=== PATIENT | female | born 1985 | race Caucasian/White ===

== ENCOUNTER 2016-08-27 16:28 | Emergency (ER) | payer MEDICAID ==
--- NOTE | 2016-08-27 17:05 | ER Document Report ---
ED Medical Screen (RME) - General Chief Complaint: Vaginal Pain Stated Complaint: VAGINAL PAIN Notes: Patient says that she started having what seemed to be cysts in the pubic region started last Saturday. She was started on Bactrim twice a day on , but the area has just gotten much bigger and more painful. She's not had any drainage. No fevers. LMP 08/17. BTL. No other medical conditions. TRAVEL OUTSIDE OF THE [place] IN LAST 30 DAYS: No - Related Data Allergies/Adverse Reactions: cefadroxil hydrate [From [facility] [place]] Allergy (Severe, Verified 08/27/16 16:58) bees Allergy (Uncoded 08/27/16 16:58) Past Medical History Renal/ Medical History: Denies: Hx Peritoneal Dialysis - Immunizations Hx Diphtheria, Pertussis, Tetanus Vaccination: Yes Physical Exam - Vital signs Vitals: Temp Pulse Resp BP Pulse Ox 98.1 F 86 16 144/77 H 99 08/27/16 16:51 08/27/16 16:51 08/27/16 16:51 08/27/16 16:51 08/27/16 16:51 Course - Vital Signs Vital signs: Temp Pulse Resp BP Pulse Ox 98.1 F 86 16 144/77 H 99 08/27/16 16:51 08/27/16 16:51 08/27/16 16:51 08/27/16 16:51 08/27/16 16:51
[2016-08-27] MEDS ORDERED: LIDOCAINE 1% INJ-PF (10 MG/ML) 30 ML SDV INJ ONE (17:14)
[2016-08-27] MEDS ORDERED: ACETAMINOPHEN 325 MG TABLET PO ONE (17:14)
[2016-08-27] MEDS ORDERED: CLINDAMYCIN HCL 150 MG CAPSULE PO ONE (18:15)
--- NOTE | 2016-08-27 18:16 | ER Document Report ---
HPI - HPI Patient complains to provider of: cyst Pain Level: 4 Context: He shouldn't is a 30-year-old female presents emergency Department complaining of suprapubic cellulitis for the past 5 days. 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 Patient feels that it has gotten worse and she's been on the Bactrim and was referred over here today for incision and drainage. Denies any fever, chills, drainage from the area. Denies any history of MRSA. States she is allergic to cefadroxil otherwise denies any other past medical history - CARDIOVASCULAR Cardiovascular: DENIES: Chest pain - REPRODUCTIVE Reproductive: DENIES: : - DERM Skin Color: Normal, [place] Past Medical History - Social History Smoking Status: Never Smoker Chew tobacco use (# tins/day): No Frequency of alcohol use: None Drug Abuse: None Family History: Reviewed & Not Pertinent Patient has suicidal ideation: No Renal/ Medical History: Denies: Hx Peritoneal Dialysis Surgical Hx: Negative - Immunizations Hx Diphtheria, Pertussis, Tetanus Vaccination: Yes Vertical Provider Document - CONSTITUTIONAL Agree With Documented VS: Yes Exam Limitations: No Limitations General Appearance: WD/WN, No Apparent Distress Notes: PHYSICAL EXAM GENERAL: Alert, interacts well. LUNGS: Clear to auscultation bilaterally, no wheezes, rales, or rhonchi. No respiratory distress. HEART: Regular rate and rhythm. No murmurs, gallops, or rubs. ABDOMEN: Soft, nondistended, nontender. No guarding, rebound, or rigidity.. Bowel sounds present in all 4 quadrants. EXTREMITIES: Moves all 4 extremities spontaneously. No edema, radial and dorsalis pedis pulses 2/4 bilaterally. No cyanosis. NEUROLOGICAL: Alert and oriented x4. Normal speech. PSYCH: Normal affect, normal mood. SKIN: Warm, dry, normal turgor. No rashes or lesions noted. Area 5 cm x 7 cm of cellulitis and suprapubic area with induration and fluctuance. - INFECTION CONTROL TRAVEL OUTSIDE OF THE [place] IN LAST 30 DAYS: No - RESPIRATORY O2 Sat by Pulse Oximetry: 99 Course - Re-evaluation Re-evalutation: 08/27/16 21:05 Incision and drainage performed for about 2 mL (fluid and pocket explored for any loculations. Irrigated with saline and dry sterile dressing applied. Discussed with patient adding another antibiotic and telling her to follow up with primary care in 3 days - Vital Signs Vital signs: Temp Pulse Resp BP Pulse Ox 98.1 F 86 16 144/77 H 99 08/27/16 16:51 08/27/16 16:51 08/27/16 16:51 08/27/16 16:51 08/27/16 16:51 Procedures - Incision and Drainage Abdomen Type: Simple Anesthetic type: 1% Lidocaine mL's of anesthetic: 5 Blade size: 11 I&D procedure: Betadine prep applied, Sterile dressing applied Incision Method: Incision made by scalpel Amount/type of drainage: 2 Adult Front & Back picture: 1 - Cellulitis Discharge - Discharge Clinical Impression: Cellulitis Condition: Good Disposition: HOME, SELF-CARE Instructions: Cellulitis ([facility]) Additional Instructions: Follow-up with your primary care provider on for wound evaluation Prescriptions: Clindamycin HCl 300 mg PO Q6H 7 Days
[2016-08-27 18:54] VITALS: BP 142/74
== END 2016-08-27 18:31 | disposition home or self-care (01) ==
LOC: ER 16:28
PROC: 0H97XZZ Drainage of Abdomen Skin, External Approach (ICD-10-PCS; principal; 2016-08-27)
DX: L03.311 Cellulitis of abdominal wall (principal)
CPT/HCPCS: 99283

== ENCOUNTER → 2019-04-27 | Outpatient (CLI) | payer BC ==
--- NOTE | 2019-04-27 15:36 | RADIOLOGY REPORT (SQ) ---
EXAM DESCRIPTION: CT ABD/PELVIS NO ORAL OR IV COMPLETED DATE/TIME: 04/27/2019 3:17 pm REASON FOR STUDY: (R10.9)UNSPECIFIED ABDOMINAL PAIN R10.9 UNSPECIFIED ABDOMINAL PAIN COMPARISON: None. TECHNIQUE: CT scan of the abdomen and pelvis performed without intravenous or oral contrast. Images reviewed with lung, soft tissue, and bone windows. Reconstructed coronal and sagittal MPR images revi ewed. All images stored on PACS. All CT scanners at this facility use dose modulation, iterative reconstruction, and/or weight based d osing when appropriate to reduce radiation dose to as low as reasonably achievable (ALARA). [facility]: Dose Right [facility]: CareDose [facility]: Dose Right [facility]: Teradose 4D [facility]: Smart Technologies RADIATION DOSE: CT Rad equipment meets quality standard of care and radiation dose reduction techniq ues were employed. CTDIvol: 11.5 mGy. DLP: 629 mGy-cm.mGy. LIMITATIONS: None. FINDINGS: LOWER CHEST: No significant findings. No nodules or infiltrates. NON-CONTRASTED LIVER, SPLEEN, ADRENALS: Evaluation limited by lack of IV contrast. No identified sign ificant masses. PANCREAS: No masses. No peripancreatic inflammatory changes. GALLBLADDER: No identified stones by CT criteria. No inflammatory changes to suggest cholecystitis. RIGHT KIDNEY AND URETER: No suspicious masses. Assessment limited by lack of IV contrast. No signif icant calcifications. No hydronephrosis or hydroureter. LEFT KIDNEY AND URETER: No suspicious masses. Assessment limited by lack of IV contrast. 10 mm ston e left UPJ measuring 1,300 HU. 2 smaller stones in the kidney. Mild hydronephrosis. AORTA AND RETROPERITONEUM: No aneurysm. No retroperitoneal masses or adenopathy. BOWEL AND PERITONEAL CAVITY: No obvious masses or inflammatory changes. No free fluid. APPENDIX: Normal. PELVIS, BLADDER, AND ABDOMINAL WALL:No abnormal masses. No free fluid. Bladder normal. BONES: No significant findings. OTHER: No other significant finding. IMPRESSION: 10 mm stone left UPJ. Mild hydronephrosis. COMMENT: Quality ID # [id number]: Final reports with documentation of one or more dose reduction techniques (e.g., Automated exposure control, adjustment of the mA and/or kV according to patient size, use of iterative reconstruction technique) TECHNICAL DOCUMENTATION: JOB ID: [id number]- All Rights Reserved Reading location - IP/workstation name: [email or web address]
== END ==
LOC: RAD 14:51
PROVIDERS: ATTEND Nurse Practitioner Family
DX: N13.2 Hydronephrosis with renal and ureteral calculous obstruction (principal); R10.9 Unspecified abdominal pain
CPT/HCPCS: 74176

== ENCOUNTER 2019-04-28 15:36 | Emergency (ER) | payer BC ==
[2019-04-28] MEDS ORDERED: NORMAL SALINE 1000 ML 1,000 ML IV ONE ×2 (16:08→17:52)
[2019-04-28] MEDS ORDERED: ONDANSETRON HCL INJ/PF 4 MG/2 ML SDV IV ONE (16:08)
[2019-04-28] MEDS ORDERED: MORPHINE SULFATE 10 MG/ML INJ IV ONE (16:09)
--- NOTE | 2019-04-28 16:12 | ER Document Report ---
ED Medical Screen (RME) - General Chief Complaint: Possible Kidney Stone Stated Complaint: NAUSEA,VOMITING,LEFT FLANK PAIN Time Seen by Provider: 04/28/19 16:07 Primary Care Provider: JOSESITO SHETH FNP-C [Primary Care Provider] - Follow up as needed Mode of Arrival: Ambulatory Information source: Patient Notes: 33-year-old female presented to ED for left flank pain. She did have a CAT scan outpatient does show a 10 mm stone at the left UPJ. She states her primary care did give her Toradol and Flomax yesterday. She has been taking it. She did take Toradol this morning. I have ordered her IV fluids blood and urine and some morphine for her pain. I have also ordered her some Zofran. She has been informed she needs to find a ride if she is going home before she leaves as she will be getting narcotics. Patient is alert oriented respirations regular and unlabored at this time. I have greeted and performed a rapid initial assessment of this patient. A comprehensive ED assessment and evaluation of the patient, analysis of test results and completion of medical decision making process will be conducted by an additional ED providers. TRAVEL OUTSIDE OF THE [place] IN LAST 30 DAYS: No - Related Data Allergies/Adverse Reactions: cefadroxil hydrate [From [facility]] Allergy (Severe, Verified 08/27/16 16:58) bees Allergy (Uncoded 08/27/16 16:58) Past Medical History Renal/ Medical History: Denies: Hx Peritoneal Dialysis - Immunizations Hx Diphtheria, Pertussis, Tetanus Vaccination: Yes Physical Exam - Vital signs Vitals: Temp Pulse Resp BP Pulse Ox 97.8 F 106 H 16 135/78 H 98 04/28/19 15:59 04/28/19 15:59 04/28/19 15:59 04/28/19 15:59 04/28/19 15:59 Course - Vital Signs Vital signs: Temp Pulse Resp BP Pulse Ox 97.8 F 106 H 16 135/78 H 98 04/28/19 15:59 04/28/19 15:59 04/28/19 15:59 04/28/19 15:59 04/28/19 15:59 Doctor's Discharge - Discharge Referrals: JOSESITO SHETH FNP-C [Primary Care Provider] - Follow up as needed
--- NOTE | 2019-04-28 16:25 | ER Document Report ---
ED General - General Chief Complaint: Flank Pain Stated Complaint: NAUSEA,VOMITING,LEFT FLANK PAIN Time Seen by Provider: 04/28/19 16:07 Primary Care Provider: JOSESITO SHETH FNP-C [Primary Care Provider] - Follow up in 3-5 days Mode of Arrival: Ambulatory Information source: Patient Notes: 33-year-old female presents emergency department with complaints of left-sided flank pain radiating down her left side to her left groin. Reports symptoms started 1 week ago. Increased. She saw her provider yesterday was sent for CT knee and was diagnosed with a 10 mm kidney stone. Patient reports she was doing okay she was treated with Toradol and Flomax but started vomiting today. Her provider told her to come to the ER. She denies fever. She reports decreased urine output with dark urine. Denies pain with void TRAVEL OUTSIDE OF THE [place] IN LAST 30 DAYS: No - HPI Onset: Last week Onset/Duration: Sudden, Worse Quality of pain: Achy Associated symptoms: Nausea, Vomiting. denies: Fever Exacerbated by: Denies Relieved by: Denies Similar symptoms previously: Yes Recently seen / treated by doctor: Yes - Related Data Allergies/Adverse Reactions: cefadroxil hydrate [From [facility]] Allergy (Severe, Verified 08/27/16 16:58) bees Allergy (Uncoded 08/27/16 16:58) Past Medical History - General Information source: Patient - Social History Smoking Status: Never Smoker Frequency of alcohol use: None Drug Abuse: None Lives with: Family Family History: Reviewed & Not Pertinent Patient has suicidal ideation: No Patient has homicidal ideation: No - Medical History Medical History: Negative Renal/ Medical History: Reports: Hx Kidney Stones. Denies: Hx Peritoneal Dialysis Surgical Hx: Negative - Immunizations Hx Diphtheria, Pertussis, Tetanus Vaccination: Yes Review of Systems - Review of Systems Notes: Review HPI for review of systems., All other systems negative Physical Exam - Vital signs Vitals: Temp Pulse Resp BP Pulse Ox 97.8 F 106 H 16 135/78 H 98 04/28/19 15:59 04/28/19 15:59 04/28/19 15:59 04/28/19 15:59 04/28/19 15:59 - General General appearance: Alert In distress: None - HEENT Head: Normocephalic Eyes: Normal Extraocular movements intact: Yes Neck: Normal, Supple - Respiratory Respiratory status: No respiratory distress Chest status: Nontender Breath sounds: Normal Chest palpation: Normal - Cardiovascular Rhythm: Regular Heart sounds: Normal auscultation Murmur: No - Abdominal Inspection: Normal Distension: No distension Tenderness: Tender - Back Back: CVA tenderness - left flank - Extremities General upper extremity: Normal ROM General lower extremity: Normal ROM - Neurological Neuro grossly intact: Yes Cognition: Normal Orientation: AAOx4 [place] Coma Scale Eye Opening: Spontaneous [place] Coma Scale Verbal: Oriented Jake Coma Scale Motor: Obeys Commands Jake Coma Scale Total: 15 Speech: Normal - Psychological Associated symptoms: Normal affect, Normal mood - Skin Skin Temperature: Warm Skin Moisture: Dry Skin Color: Normal Course - Re-evaluation Re-evalutation: 04/28/19 19:15 33-year-old female presents with kidney stone approximately 10 mm UVJ. Patient reports diagnosed yesterday. She was treated with Toradol and Flomax. She started vomiting today and her provider sent her here. Patient is on her second liter of fluids. She reports she is feeling denies pain at this time. She was given Reglan for the nausea and reports no nausea at this time. Consulted my attending, Dr. Babcock. He advises p.o. fluid challenge if patient is able to tolerate p.o. fluids consult urology for appointment in the morning. If she is unable to tolerate fluids consult urology for possible transfer. Patient was updated on plan of care and agrees. Abdomen/Pelvis CT 04/28/19 17:52 IMPRESSION: Unchanged position of the 10 x 7 mm calculus in the left ureteropelvic junction that is associated with mild hydronephrosis. 04/28/19 16:30 04/28/19 16:30 MCV 93 fl (80-97) 04/28/19 16:30 MCH 30.8 pg (27.0-33.4) 04/28/19 16:30 MCHC 33.2 g/dL (32.0-36.0) 04/28/19 16:30 RDW 13.3 % (11.5-14.0) 04/28/19 16:30 Seg Neutrophils % 59.7 % (42-78) 04/28/19 16:30 Chloride 103 mmol/L (98-107) 04/28/19 16:30 Carbon Dioxide 24 mmol/L (22-30) 04/28/19 16:30 Anion Gap 14 (5-19) 04/28/19 16:30 Est GFR ( Amer) > 60 (>60) 04/28/19 16:30 Glucose 104 mg/dL (75-110) 04/28/19 16:30 Calcium 9.2 mg/dL (8.4-10.2) 04/28/19 16:30 Total Bilirubin 0.4 mg/dL (0.2-1.3) 04/28/19 16:30 AST 39 U/L (14-36) H 04/28/19 16:30 Alkaline Phosphatase 49 U/L (38-126) 04/28/19 16:30 Total Protein 7.1 g/dL (6.3-8.2) 04/28/19 16:30 Albumin 4.0 g/dL (3.5-5.0) 04/28/19 16:30 Serum HCG, Qual NEGATIVE (NEGATIVE) 04/28/19 16:30 Urine Color YELLOW 04/28/19 16:30 Urine Appearance SLIGHTLY-CLOUDY 04/28/19 16:30 Urine pH 6.0 (5.0-9.0) 04/28/19 16:30 Ur Specific [place] 1.020 04/28/19 16:30 Urine Protein 30 mg/dL (NEGATIVE) H 04/28/19 16:30 Urine Glucose (UA) NEGATIVE mg/dL (NEGATIVE) 04/28/19 16:30 Urine Ketones NEGATIVE mg/dL (NEGATIVE) 04/28/19 16:30 Urine Blood MODERATE (NEGATIVE) H 04/28/19 16:30 Urine RBC (Auto) 67 /HPF 04/28/19 16:30 04/28/19 19:50 Patient attempted to drink p.o. fluids became nauseated requesting more nausea medication. Denies pain at this time [facility] contacted for urology consult possible transfer. 04/28/19 20:17 Dr. Nuñez, urologist from [facility] returned call. He was advised of patient complaint labs CT result. He advised IV Phenergan Toradol. He does not think the patient needs to be transferred at this time. He also advised patient to call his office first thing in the morning for an appointment. I discussed the plan of care with patient. Patient reports she already has a urology appoin tment with [place] tomorrow at 2:00. Patient also reports she has Zofran and Toradol with Flomax at home. She declines Phenergan. Requested Reglan. Agrees to Toradol. She was instructed on the importance of staying hydrated clear liquid fluids stay away from flavored drinks. Return to the emergency department for worsening symptoms concerns needs. She verbalized understand all instructions. Dictation of this chart was performed using voice recognition software; therefore, there may be some unintended grammatical errors. - Vital Signs Vital signs: Temp Pulse Resp BP Pulse Ox 98.0 F 78 20 121/71 99 04/28/19 21:11 04/28/19 21:11 04/28/19 21:11 04/28/19 21:11 04/28/19 21:11 - Laboratory Result Diagrams: 04/28/19 16:30 04/28/19 16:30 Laboratory results interpreted by me: 04/28/19 04/28/19 16:30 16:30 AST 39 H Urine Protein 30 H Urine Blood MODERATE H Leukocyte Esterase Rfl SMALL H - Diagnostic Test Radiology reviewed: Image reviewed, Reports reviewed Discharge - Discharge Clinical Impression: Flank pain, Kidney stone Nausea & vomiting Qualifiers: Vomiting type: unspecified Vomiting Intractability: unspecified Qualified Code(s): R11.2 - Nausea with vomiting, unspecified Condition: Stable Disposition: HOME, SELF-CARE Instructions: Antinausea Medication ([facility]), Intravenous (IV) Fluids ([facility]), Kidney Stone ([facility]), Reglan ([facility]), Toradol Injection ([facility]), Vomiting ([facility]) Additional Instructions: *You have been evaluated for flank pain, kidney stone, nausea and vomiting *Take medication as prescribed *Follow up with the urologist tomorrow at 1400 as scheduled *Clear liquid fluids advance as tolerated *Return to ED for worsening condition, changes, needs, unable to hold fluids down, fever *Return to ED if not better in 24 hours Referrals: JOSESITO SHETH [employer]OTHER[employer]PERATING ENGINEER-C [Primary Care Provider] - Follow up in 3-5 days
[2019-04-28 16:56] LABS: ABSOLUTE LYMPHOCYTES (AUTO) 1.9 10^3/uL (0.5-4.7); ABSOLUTE MONOCYTES (AUTO) 0.5 10^3/uL (0.1-1.4); ABSOLUTE NEUT (AUTO) 3.6 10^3/uL (1.7-8.2); BASOPHILS % (AUTO) 0.5 % (0-2); EOSINOPHILS % (AUTO) 0.6 % (0-6); HEMATOCRIT 40.2 % (36.0-47.0); HEMOGLOBIN 13.3 g/dL (12.0-15.5); LYMPHOCYTES % (AUTO) 30.9 % (13-45); MEAN CORPUSCULAR HEMOGLOBIN 30.8 pg (27.0-33.4); MEAN CORPUSCULAR HGB CONC 33.2 g/dL (32.0-36.0); MEAN CORPUSCULAR VOLUME 93 fl (80-97); MONOCYTES % (AUTO) 8.3 % (3-13); PLATELET COUNT 240 10^3/uL (150-450); RED BLOOD COUNT 4.33 10^6/uL (3.72-5.28); RED CELL DISTRIBUTION WIDTH 13.3 % (11.5-14.0); SEGMENTED NEUTROPHILS % (AUTO) 59.7 % (42-78); TOTAL CELLS COUNTED % (AUTO) 100 %
[2019-04-28 17:03] LABS: APPEARANCE,URINE SLIGHTLY-CLOUDY; BILIRUBIN,URINE NEGATIVE (NEGATIVE); COLOR,URINE YELLOW; GLUCOSE, URINE NEGATIVE (NEGATIVE); KETONES,URINE NEGATIVE (NEGATIVE); PROTEIN,URINE 30 mg/dL (NEGATIVE); UROBILINOGEN,URINE NEGATIVE mg/dL (<2.0)
[2019-04-28 17:13] LABS: ALKALINE PHOSPHATASE 49 U/L (38-126); ANION GAP 14 (5-19); ASPARTATE AMINO TRANSFERASE 39 U/L (14-36); BILIRUBIN,DIRECT 0.1 mg/dL (0.0-0.4); BILIRUBIN,TOTAL 0.4 mg/dL (0.2-1.3); BLOOD UREA NITROGEN 16 mg/dL (7-20); CALCIUM 9.2 mg/dL (8.4-10.2); CARBON DIOXIDE 24 mmol/L (22-30); CHLORIDE 103 mmol/L (98-107); GLUCOSE 104 mg/dL (75-110); POTASSIUM 3.9 mmol/L (3.6-5.0); TOTAL PROTEIN 7.1 g/dL (6.3-8.2)
[2019-04-28] MEDS ORDERED: METOCLOPRAMIDE HCL INJ/PF 10 MG/2 ML SDV IV ONE ×2 (17:52→20:15)
--- NOTE | 2019-04-28 18:39 | RADIOLOGY REPORT (SQ) ---
EXAM DESCRIPTION: CT ABD/PELVIS NO ORAL OR IV COMPLETED DATE/TIME: 04/28/2019 6:18 pm REASON FOR STUDY: kidney stone, increased pain COMPARISON: CT of the abdomen and pelvis without contrast from 04/27/2019. TECHNIQUE: CT scan of the abdomen and pelvis performed without intravenous or oral contrast. Images reviewed with lung, soft tissue, and bone windows. Reconstructed coronal and sagittal MPR images revi ewed. All images stored on PACS. All CT scanners at this facility use dose modulation, iterative reconstruction, and/or weight based d osing when appropriate to reduce radiation dose to as low as reasonably achievable (ALARA). [facility]: Dose Right [facility]: CareDose [facility]: Dose Right [facility]: Teradose 4D [facility]: [employer] RADIATION DOSE: CT Rad equipment meets quality standard of care and radiation dose reduction techniq ues were employed. CTDIvol: 13.0 mGy. DLP: 725 mGy-cm.mGy. LIMITATIONS: None. FINDINGS: LOWER CHEST: No acute findings. NON-CONTRASTED LIVER, SPLEEN, ADRENALS: Evaluation is limited due to the absence of intravenous contr ast. The hypodense subcapsular lesion in the lateral aspect of the right hepatic lobe (image 24 of s eries 3) that measures 1.6 x 1.3 cm is unchanged. The spleen is normal in size. There is no abnorma lity of the adrenal glands. PANCREAS: No acute abnormality of the pancreas. GALLBLADDER: No abnormality that is apparent on CT. RIGHT KIDNEY AND URETER: There are several cortical based hypodense lesions that measure up to 1.3 cm in diameter. There are 2 mm caliceal calculi in the lower pole of the kidney. There is no associat ed hydronephrosis, hydroureter or ureterolithiasis. LEFT KIDNEY AND URETER: 10 x 7 mm calculus in the ureteropelvic junction associated with mild hydrone phrosis. There are also caliceal calculi that measure up to 3 mm in diameter. The hypodense lesions in the upper and lower poles of the kidney could represent cysts. There is no hydroureter or ureter olithiasis. AORTA AND RETROPERITONEUM: No aneurysm of the abdominal aorta. No retroperitoneal adenopathy, hemorr efra or mass. BOWEL AND PERITONEAL CAVITY: No bowel obstruction, bowel wall thickening, pericolonic/perienteric inf lammation. No mesenteric adenopathy, free intraperitoneal fluid, or mesenteric/peritoneal mass. APPENDIX: Normal. PELVIS, BLADDER, AND ABDOMINAL WALL:The urinary bladder is nondistended. There is no abnormality of the uterus and adnexa that is apparent on CT. BONES: No acute findings. OTHER: Fat containing umbilical hernia. IMPRESSION: Unchanged position of the 10 x 7 mm calculus in the left ureteropelvic junction that is associated with mild hydronephrosis. COMMENT: Quality ID # [id number]: Final reports with documentation of one or more dose reduction techniques (e.g., Automated exposure control, adjustment of the mA and/or kV according to patient size, use of iterative reconstruction technique) TECHNICAL DOCUMENTATION: JOB ID: [id number] [employer]- All Rights Reserved Reading location - IP/workstation name: [email or web address]
[2019-04-28] MEDS ORDERED: PROMETHAZINE HCL INJ 25 MG/1 ML VIAL IV ONE (20:09)
[2019-04-28] MEDS ORDERED: KETOROLAC TROMETHAMINE INJ/PF 30 MG/1 ML SDV IV ONE (20:09)
[2019-04-28] MEDS ORDERED: PROMETHAZINE HCL 25 MG SUPP (4 SUPP/ER DISP) PR ONE (20:16)
[2019-04-28 20:59] VITALS: BP 121/71
== END 2019-04-28 21:09 | disposition home or self-care (01) ==
LOC: ER 15:36
DX: N20.0 Calculus of kidney (principal); R10.9 Unspecified abdominal pain; R11.2 Nausea with vomiting, unspecified; R10.32 Left lower quadrant pain; R33.9 Retention of urine, unspecified
CPT/HCPCS: 96376; 99284; 96361; 96374; 96375; 36415; 84703; 85025; 80053; 81001; 74176; J3490; J1885; J2765; J2270; J2405; J7030